=== PATIENT | male | born 1995 | race Asian ===

== ENCOUNTER 2019-08-14 19:48 | Emergency (ER) | payer OTHER ==
[~2019-08-14] VITALS: Ht 193 cm; Wt 102.1 kg
[2019-08-15 00:29] VITALS: BP 154/89
[2019-08-15 01:52] LABS: Hepatitis B Surface Antibody Negative
[2019-08-15 02:50] LABS: Hepatitis B Surface Antigen Negative (Negative)
== END 2019-08-15 01:19 | disposition home or self-care (01) ==
LOC: ER 19:50
DX: S60.411A Abrasion of left index finger, initial encounter (principal); Z77.21 Contact with and (suspected) exposure to potentially hazardous body fluids; W27.8XXA Contact with other nonpowered hand tool, initial encounter; Y93.89 Activity, other specified; Y92.89 Other specified places as the place of occurrence of the external cause; Y99.8 Other external cause status
CPT/HCPCS: 36415; 86703; 86706; 86803; 87340

== ENCOUNTER → 2019-11-26 | Outpatient (CLI) | payer OTHER ==
[2019-11-28 09:05] LABS: Hepatitis B Surface Antibody Positive
[2019-11-28 10:08] LABS: Hepatitis B Surface Antigen Negative (Negative)
== END | disposition home or self-care (01) ==
LOC: LAB 10:29
PROVIDERS: ATTEND Nurse Practitioner
DX: S61.230A Puncture wound without foreign body of right index finger without damage to nail, initial encounter (principal); Z77.21 Contact with and (suspected) exposure to potentially hazardous body fluids; X58.XXXA Exposure to other specified factors, initial encounter; Y93.89 Activity, other specified; Y92.89 Other specified places as the place of occurrence of the external cause; Y99.8 Other external cause status
CPT/HCPCS: 36415; 86703; 86706; 86803; 87340

== ENCOUNTER → 2020-09-24 | Outpatient (CLI) | payer OTHER ==
[2020-09-24 11:46] LABS: Hepatitis B Surface Antibody Positive
[2020-09-24 13:17] LABS: Hepatitis B Surface Antigen Negative (Negative)
== END | disposition home or self-care (01) ==
LOC: LAB 10:12
PROVIDERS: ATTEND Nurse Practitioner
DX: Z77.21 Contact with and (suspected) exposure to potentially hazardous body fluids (principal)
CPT/HCPCS: 36415; 86703; 86706; 86803; 87340